=== PATIENT | female | born 1995 | race Caucasian/White ===

== ENCOUNTER 2017-09-02 09:28 | Emergency (ER) | payer OTHER ==
[2017-09-02 09:41] VITALS: BP 110/63; PULSE 82; TEMP 98.2; BMI 32.0
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
--- NOTE | 2017-09-02 11:01 | PDOC ---
*Physical Exam - Vital Signs Last Vital Signs Temp Pulse Resp BP Pulse Ox 98.2 F 82 18 110/63 100 09/02/17 09:35 09/02/17 09:35 09/02/17 09:35 09/02/17 09:35 09/02/17 09:35 ED Treatment Course - LABORATORY CBC & Chemistry Diagram: 09/02/17 11:51 09/02/17 11:51 Medical Decision Making - Medical Decision Making 09/02/17 11:01 Pt seen by the Advanced Practice Provider under my direct supervision Ancillary studies reviewed I agree with plan as outlined by the Advanced Practice Provider CHARLEE Gamboa *DC/Admit/Observation/Transfer Diagnosis at time of Disposition: UTI (urinary tract infection) during - Discharge Dispostion Disposition: HOME Condition at time of disposition: Stable - Prescriptions Prescriptions: Cephalexin Monohydrate [Keflex -] 500 mg PO BID #20 capsule - Referrals Referrals: Ling Rizzo [Primary Care Provider] - - Patient Instructions Printed Discharge Instructions: DI for Urinary Tract Infection (UTI) Additional Instructions: Take Keflex 500 mg twice a day for the next 10 days. Follow-up with your stained glass joiner that you previously scheduled appointment time. Take Tylenol for fevers or pain. Follow manufacturers instructions for appropriate dosage. Avoid taking medicines that contain ibuprofen, Naprosyn, or aspirin. Continue taking her vitamins. Keep well-hydrated. Drinking cranberry juice may help relieve symptoms of urinary tract infection. Eat a diet high in green leafy vegetables to help brain growth. Return to emergency department for worsening abdominal pain, vaginal bleeding, vaginal discharge, or any other concerns. Thank you very much for choosing us to provide your emergent healthcare needs. - Post Discharge Activity
[2017-09-02 12:06] LABS: URINE APPEARANCE SLCLOUDY; URINE BILIRUBIN NEGATIVE (NEGATIVE); URINE BLOOD 1+ (NEGATIVE); URINE COLOR LTYELLOW; URINE GLUCOSE (UA) NEGATIVE (NEGATIVE); URINE KETONE NEGATIVE (NEGATIVE); URINE LEUK ESTERASE NEGATIVE (NEGATIVE); URINE NITRITE POSITIVE (NEGATIVE); URINE PROTEIN NEGATIVE (NEGATIVE); URINE UROBILINOGEN NEGATIVE mg/dL (0.2-1.0)
[2017-09-02 12:16] LABS: BASO % 0.4 % (0-2.0); EOS % 0.2 % (0-4.5); MCH 29.7 pg (25.7-33.7); MCHC 33.8 g/dl (32.0-36.0); MEAN CELL VOLUME 87.9 fl (80-96); MEAN PLT VOLUME 7.6 fl (7.5-11.1); NEUT % 72.7 % (42.8-82.8); PLATELET COUNT 288 K/MM3 (134-434); RDW 14.1 % (11.6-15.6); WHITE BLOOD COUNT 11.7 K/mm3 (4.0-10.0)
[2017-09-02 12:39] LABS: ANION GAP 9 (8-16); CO2 24 mmol/L (21-32); CREATININE 0.6 mg/dL (0.55-1.02); GLUCOSE,RANDOM 89 mg/dL (74-106)
[2017-09-02 18:26] LABS: URINE LEUK ESTERASE Negative (NEGATIVE)
[2017-09-02 22:01] LABS: LYMPH # 2.4 (8-40); MONO # 0.7 # (3.8-10.2); NEUT # 8.5 # (42.8-82.8)
--- NOTE | 2017-09-04 07:40 | PDOC ---
Patient Follow-up (Call Back) - Post ED Follow - Up Condition at time of discharge: Stable Disposition at time of original discharge: HOME Reason for Call Back: Abnwl. Microbiology (Preliminary with lactose fermenting - bacilli. Pt placed on Keflex in ED. Adequate coverage. Will await final report.)
== END 2017-09-02 13:35 | disposition home or self-care (01) ==
LOC: JER 09:28
DX: O23.41 Unspecified infection of urinary tract in pregnancy, first trimester (principal); Z3A.08 8 weeks gestation of pregnancy; B96.20 Unspecified Escherichia coli [E. coli] as the cause of diseases classified elsewhere
CPT/HCPCS: 36415; 76801-TC; 80048; 81003; 81015; 84702; 85025; 86850; 86900; 86901; 87086; 87186; 99283-25

== ENCOUNTER 2017-09-10 05:03 | Emergency (ER) | payer OTHER ==
[2017-09-10 05:19] VITALS: BMI 31.8
--- NOTE | 2017-09-10 05:27 | PDOC ---
History of Present Illness - General History Source: Patient Exam Limitations: No Limitations - History of Present Illness Initial Comments: 09/10/17 06:15 The patient is a 22 year old, , female with no significant PMH who presents to the emergency department with abdominal pain. The patient describes the abdominal pain as sharp and localized in the suprapubic area. The patient notes the abdominal pain woke her up prompting her visit to the ER. The patient also complains of associated nausea secondary to her abdominal pain. The patient states her LMP on July 03. The patient was seen at our facility on 09/02 and discharged home on keflex for a UTI . The patient denies any vaginal bleeding, vaginal discharge, dysuria, hematuria, flank pain, rectal bleeding, difficulty voiding or moving bowels. The patient reports she is two months . The patient does not take any medications except for vitamins. Patient has her next appointment with her OB on September 20. Allergies: NKA Past surgical history: None reported. Social history: No reported alcohol, drug, or cigarette use. PCP: Dr. Rizzo <Aleja Verdin - Last Filed: 09/10/17 06:15> <Tata Meneses - Last Filed: 09/10/17 20:41> - General Chief Complaint: Pain, Acute Stated Complaint: ABDOMINAL PAIN (2 MONTHS PREG) Time Seen by Provider: 09/10/17 05:27 Past History <Aleja Verdin - Last Filed: 09/10/17 06:15> - Past Medical History COPD: No - Suicide/Smoking/Psychosocial Hx Smoking History: Never smoked Have you smoked in the past 12 months: No Number of Cigarettes Smoked Daily: 3 If you are a former smoker, when did you quit?: 08/30/17 Information on smoking cessation initiated: No Hx Alcohol Use: No Drug/Substance Use Hx: No Substance Use Type: Marijuana <Tata Meneses - Last Filed: 09/10/17 20:41> - Past Medical History Allergies/Adverse Reactions: Allergies Allergy/AdvReac Type Severity Reaction Status Date / Time No Known Allergies Allergy Verified 09/02/17 09:42 Home Medications: Ambulatory Orders Multivit-Min36/Iron/Folic Acid [Geritol Complete Tablet] 1 mg PO DAILY 09/10/17 Review of Systems - Review of Systems Able to Perform ROS?: Yes Comments:: 09/10/17 06:50 GENERAL/CONSTITUTIONAL: No fever or chills. No weakness. HEAD, EYES, EARS, NOSE AND THROAT: No change in vision. No ear pain or discharge. No sore throat. CARDIOVASCULAR: No chest pain or shortness of breath. RESPIRATORY: No cough, wheezing, or hemoptysis. GASTROINTESTINAL: (+) abdominal pain. (+) nausea. No vomiting, diarrhea or constipation. GENITOURINARY: No dysuria, frequency, or change in urination. MUSCULOSKELETAL: No joint or muscle swelling or pain. No neck or back pain. SKIN: No rash NEUROLOGIC: No headache, vertigo, loss of consciousness, or change in strength/ sensation. ENDOCRINE: No increased thirst. No abnormal weight change. HEMATOLOGIC/LYMPHATIC: No anemia, easy bleeding, or history of blood clots. ALLERGIC/IMMUNOLOGIC: No hives or skin allergy. <Aleja eVrdin - Last Filed: 09/10/17 06:15> *Physical Exam - Vital Signs Last Vital Signs Temp Pulse Resp BP Pulse Ox 97.6 F 83 20 92/64 99 09/10/17 05:18 09/10/17 05:18 09/10/17 05:18 09/10/17 05:18 09/10/17 05:18 - Physical Exam Comments: 09/10/17 06:52 GENERAL: Awake, alert, and fully oriented, in no acute distress HEAD: No signs of trauma EYES: PERRLA, EOMI, sclera anicteric, conjunctiva clear ENT: Auricles normal inspection, hearing grossly normal, nares patent, oropharynx clear without exudates. Moist mucosa NECK: Normal ROM, supple, no lymphadenopathy, JVD, or masses LUNGS: Breath sounds equal, clear to auscultation bilaterally. No wheezes, and no crackles HEART: Regular rate and rhythm, normal S1 and S2, no murmurs, rubs or gallops ABDOMEN: (+) Suprapubic tenderness. Soft, normoactive bowel sounds. No guarding , no rebound. No masses EXTREMITIES: Normal range of motion, no edema. No clubbing or cyanosis. No cords, erythema, or tenderness NEUROLOGICAL: Cranial nerves II through XII grossly intact. Normal speech, normal gait SKIN: Warm, Dry, normal turgor, no rashes or lesions noted. <Aleja Verdin - Last Filed: 09/10/17 06:15> - Vital Signs Last Vital Signs Temp Pulse Resp BP Pulse Ox 97.6 F 83 20 92/64 99 09/10/17 05:18 09/10/17 05:18 09/10/17 05:18 09/10/17 05:18 09/10/17 05:18 <Tata Meneses - Last Filed: 09/10/17 20:41> ED Treatment Course - LABORATORY CBC & Chemistry Diagram: 09/10/17 06:06 09/10/17 06:06 <Tata Meneses - Last Filed: 09/10/17 20:41> Medical Decision Making - Medical Decision Making 09/10/17 07:03 PT IS 2 MONTHS AND SHE IS HAVING CRAMPS IN LOWER ABD. SHE WAS TREATED FOR A UTI LAST TIME SHE WAS HERE A WEEK AGO.(SEP 02, AND SHE WAS GIVEN KEFLEX WHICH HER UTI WAS RESISTANT TO) SHE RETURNED ON SEP 04 AND SWITCHED TO MACROBID. SHE TOOK 5 DAYS OF MACROBID. NOW WITH CRAMPS. LABS AND URINE PENDING. PT WILL HAVE SONO TO VIEW THE FETUS. SHE HAS NO VAG BLEEDING. SHE IS BLOOD TYPE NEGATIVE AND IF SHE BLEEDS, SHE WILL REQUIRE RHOGAM PT WILL BE SIGNED OUT TO THE DAY TEAM 09/10/17 07:08 <Tata Meneses - Last Filed: 09/10/17 20:41> *DC/Admit/Observation/Transfer - Attestations Scribe Attestion: 09/10/17 06:54 Documentation prepared by Aleja Verdin, acting as medical terminologist for Tata Meneses MD. <Aleja Verdin - Last Filed: 09/10/17 06:15> <Tata Meneses - Last Filed: 09/10/17 20:41> Diagnosis at time of Disposition: Subchorionic hematoma in first trimester - Discharge Dispostion Disposition: HOME Condition at time of disposition: Good - Referrals Referrals: Ling Rizzo [Primary Care Provider] - - Patient Instructions Printed Discharge Instructions: DI for Threatened Additional Instructions: regresa al ED si estas sangrando vaginal, si tenes dolor yajaira, otras simptomas peores o differentes. Debes hacer hai elaine con tu OB en la proxima semana. - Post Discharge Activity
[2017-09-10 06:19] LABS: BASO % 0.8 % (0-2.0); EOS % 0.4 % (0-4.5); HEMATOCRIT 36.7 % (32.4-45.2); HEMOGLOBIN 12.3 GM/dL (10.7-15.3); LYMPH % 23.3 % (8-40); MCH 29.6 pg (25.7-33.7); MCHC 33.6 g/dl (32.0-36.0); MEAN CELL VOLUME 88.2 fl (80-96); MEAN PLT VOLUME 7.8 fl (7.5-11.1); MONO % 5.9 % (3.8-10.2); NEUT % 69.6 % (42.8-82.8); PLATELET COUNT 251 K/MM3 (134-434); RBC 4.16 M/mm3 (3.60-5.2); RDW 13.9 % (11.6-15.6); WHITE BLOOD COUNT 10.3 K/mm3 (4.0-10.0)
[2017-09-10 06:46] LABS: URINE APPEARANCE SLCLOUDY; URINE BILIRUBIN NEGATIVE (NEGATIVE); URINE BLOOD NEGATIVE (NEGATIVE); URINE COLOR YELLOW; URINE GLUCOSE (UA) NEGATIVE (NEGATIVE); URINE KETONE NEGATIVE (NEGATIVE); URINE LEUK ESTERASE NEGATIVE (NEGATIVE); URINE NITRITE NEGATIVE (NEGATIVE); URINE PROTEIN NEGATIVE (NEGATIVE); URINE UROBILINOGEN NEGATIVE mg/dL (0.2-1.0)
[2017-09-10 06:48] LABS: ALBUMIN 3.3 g/dl (3.4-5.0); ANION GAP 8 (8-16); BILIRUBIN,TOTAL 0.2 mg/dL (0.2-1.0); BLOOD UREA NITROGEN 8 mg/dL (7-18); CALCIUM 8.8 mg/dL (8.5-10.1); CHLORIDE 104 mmol/L (98-107); CO2 25 mmol/L (21-32); CREATININE 0.5 mg/dL (0.55-1.02); GLUCOSE,RANDOM 89 mg/dL (74-106); POTASSIUM 4.1 mmol/L (3.5-5.1); SGOT/AST 23 U/L (15-37); SGPT/ALT 38 U/L (12-78); SODIUM 137 mmol/L (136-145); TOT PROT 6.7 g/dl (6.4-8.2)
[2017-09-10 07:03] LABS: ALK PHOS 48 U/L (45-117)
[2017-09-10] MEDS ORDERED: RHO(D) IMMUNE GLOBULIN 1,500 UNIT DISP.SYRIN IM ONE (10:12)
--- NOTE | 2017-09-10 10:36 | PDOC ---
*Physical Exam - Vital Signs Last Vital Signs Temp Pulse Resp BP Pulse Ox 97.6 F 83 20 92/64 99 09/10/17 05:18 09/10/17 05:18 09/10/17 05:18 09/10/17 05:18 09/10/17 05:18 ED Treatment Course - LABORATORY CBC & Chemistry Diagram: 09/10/17 06:06 09/10/17 06:06 - ADDITIONAL ORDERS Additional order review: Laboratory Results 09/10/17 09/10/17 09/10/17 09:09 06:06 06:00 Sodium 137 Potassium 4.1 Chloride 104 Carbon Dioxide 25 Anion Gap 8 BUN 8 D Creatinine 0.5 L Creat Clearance w eGFR > 60 Random Glucose 89 Calcium 8.8 Total Bilirubin 0.2 AST 23 ALT 38 Alkaline Phosphatase 48 Total Protein 6.7 Albumin 3.3 L Beta HCG, Quant 63549.0 Urine Color Yellow Urine Appearance Slcloudy Urine pH 6.0 Ur Specific Jelm 1.024 Urine Protein Negative Urine Glucose (UA) Negative Urine Ketones Negative Urine Blood Negative Urine Nitrite Negative Urine Bilirubin Negative Urine Urobilinogen Negative Blood Type AB NEGATIVE Antibody Screen Negative 09/10/17 06:06 RBC 4.16 MCV 88.2 MCHC 33.6 RDW 13.9 MPV 7.8 Neutrophils % 69.6 Lymphocytes % 23.3 Monocytes % 5.9 Eosinophils % 0.4 D Basophils % 0.8 - Medications Given in the ED: ED Medications Discontinued Medications Generic Name Dose Route Start Last Admin Trade Name Freq PRN Reason Stop Dose Admin Rho Immune Globulin 1,500 unit 09/10/17 10:12 09/10/17 10:23 Rhogam Plus IM 09/10/17 10:13 1,500 unit ONCE ONE Administration Medical Decision Making - Medical Decision Making 09/10/17 10:28 pt signed out to me by Dr. Meneses as pending transvaginal US for abdominal pain in . on official US, live IUP with + subchrorionic hemmorrhage. Will treat with rhogham and discharge. *DC/Admit/Observation/Transfer Diagnosis at time of Disposition: Subchorionic hematoma in first trimester Qualifiers: Fetus number: single or unspecified fetus Qualified Code(s): O41.8X10 - Other specified disorders of amniotic fluid and membranes, first trimester, not applicable or unspecified; O46.8X1 - Other antepartum hemorrhage, first trimester; O46.8X1 - Other antepartum hemorrhage, first trimester - Discharge Dispostion Disposition: HOME Condition at time of disposition: Good Admit: No - Referrals Referrals: Ling Rizzo [Primary Care Provider] - - Patient Instructions Printed Discharge Instructions: DI for Threatened Additional Instructions: regresa al ED si estas sangrando vaginal, si tenes dolor yajaira, otras simptomas peores o differentes. Debes hacer hai elaine con tu OB en la proxima semana. - Post Discharge Activity
[2017-09-10 11:06] VITALS: BP 106/68; PULSE 72; TEMP 98.2
== END 2017-09-10 11:04 | disposition home or self-care (01) ==
LOC: JER 05:03
PROC: 3E0234Z Introduction of Serum, Toxoid and Vaccine into Muscle, Percutaneous Approach (ICD-10-PCS; principal; 2017-09-10)
DX: O46.8X1 Other antepartum hemorrhage, first trimester (principal); O41.8X11 Other specified disorders of amniotic fluid and membranes, first trimester, fetus 1; Z3A.10 10 weeks gestation of pregnancy
CPT/HCPCS: 36415; 76801-TC; 80053; 81003; 84702; 85025; 86850; 86900; 86901; 86999; 87086; 99283-25; J1561

== ENCOUNTER 2017-09-22 11:14 | Emergency (ER) | payer OTHER ==
[2017-09-22 11:18] VITALS: BP 114/69; PULSE 80; TEMP 98.4; BMI 33.1
[2017-09-22 12:16] LABS: BASO % 0.4 % (0-2.0); EOS % 0.4 % (0-4.5); HEMATOCRIT 37.4 % (32.4-45.2); HEMOGLOBIN 12.7 GM/dL (10.7-15.3); LYMPH % 23.3 % (8-40); MCH 29.9 pg (25.7-33.7); MCHC 33.8 g/dl (32.0-36.0); MEAN CELL VOLUME 88.4 fl (80-96); MEAN PLT VOLUME 7.2 fl (7.5-11.1); MONO % 5.5 % (3.8-10.2); NEUT % 70.4 % (42.8-82.8); PLATELET COUNT 248 K/MM3 (134-434); RBC 4.24 M/mm3 (3.60-5.2); RDW 14.5 % (11.6-15.6); WHITE BLOOD COUNT 9.2 K/mm3 (4.0-10.0)
[2017-09-22 12:18] LABS: URINE APPEARANCE CLOUDY; URINE BILIRUBIN NEGATIVE (NEGATIVE); URINE BLOOD NEGATIVE (NEGATIVE); URINE COLOR YELLOW; URINE GLUCOSE (UA) NEGATIVE (NEGATIVE); URINE KETONE NEGATIVE (NEGATIVE); URINE LEUK ESTERASE NEGATIVE (NEGATIVE); URINE NITRITE NEGATIVE (NEGATIVE); URINE PROTEIN NEGATIVE (NEGATIVE); URINE UROBILINOGEN NEGATIVE mg/dL (0.2-1.0)
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
[2017-09-22 12:41] LABS: ALBUMIN 3.4 g/dl (3.4-5.0); ANION GAP 6 (8-16); BILIRUBIN,TOTAL 0.3 mg/dL (0.2-1.0); BLOOD UREA NITROGEN 5 mg/dL (7-18); CALCIUM 8.7 mg/dL (8.5-10.1); CHLORIDE 105 mmol/L (98-107); CO2 25 mmol/L (21-32); CREATININE 0.5 mg/dL (0.55-1.02); GLUCOSE,RANDOM 87 mg/dL (74-106); POTASSIUM 3.7 mmol/L (3.5-5.1); SGOT/AST 12 U/L (15-37); SGPT/ALT 18 U/L (12-78); SODIUM 136 mmol/L (136-145); TOT PROT 6.8 g/dl (6.4-8.2)
[2017-09-22 12:42] LABS: ALK PHOS 49 U/L (45-117)
[2017-09-22 12:48] LABS: INR 1.11 (0.82-1.09); PROTHROMBIN TIME (PATIENT) 12.5 SEC (9.98-11.88)
--- NOTE | 2017-09-22 14:14 | PDOC ---
*Physical Exam - Vital Signs Last Vital Signs Temp Pulse Resp BP Pulse Ox 98.4 F 80 19 114/69 100 09/22/17 11:16 09/22/17 11:16 09/22/17 11:16 09/22/17 11:16 09/22/17 11:16 ED Treatment Course - LABORATORY CBC & Chemistry Diagram: 09/22/17 12:03 09/22/17 11:41 - ADDITIONAL ORDERS Additional order review: Laboratory Results 09/22/17 09/22/17 09/22/17 11:41 11:41 11:41 PT with INR INR Sodium 136 Potassium 3.7 Chloride 105 Carbon Dioxide 25 Anion Gap 6 L BUN 5 L D Creatinine 0.5 L Creat Clearance w eGFR > 60 Random Glucose 87 Calcium 8.7 Total Bilirubin 0.3 D AST 12 L D ALT 18 D Alkaline Phosphatase 49 Total Protein 6.8 Albumin 3.4 Urine Color Yellow Urine Appearance Cloudy Urine pH 7.0 Ur Specific [place] 1.016 Urine Protein Negative Urine Glucose (UA) Negative Urine Ketones Negative Urine Blood Negative Urine Nitrite Negative Urine Bilirubin Negative Urine Urobilinogen Negative Ur Leukocyte Esterase Negative Blood Type AB NEGATIVE 09/22/17 11:41 PT with INR 12.50 H INR 1.11 Sodium Potassium Chloride Carbon Dioxide Anion Gap BUN Creatinine Creat Clearance w eGFR Random Glucose Calcium Total Bilirubin AST ALT Alkaline Phosphatase Total Protein Albumin Urine Color Urine Appearance Urine pH Ur Specific [place] Urine Protein Urine Glucose (UA) Urine Ketones Urine Blood Urine Nitrite Urine Bilirubin Urine Urobilinogen Ur Leukocyte Esterase Blood Type 09/22/17 12:03 RBC 4.24 MCV 88.4 MCHC 33.8 RDW 14.5 MPV 7.2 L Neutrophils % 70.4 Lymphocytes % 23.3 Monocytes % 5.5 Eosinophils % 0.4 Basophils % 0.4 Medical Decision Making - Medical Decision Making 09/22/17 14:13 Patient seen and evaluated with the nurse practitioner. I agree with the overall evaluation, assessment, and management with the following summary of visit: 22-year-old female at about 11 weeks gestation with recently diagnosed subchorionic bleed presents with persistent cramping but no further bleeding. Agree with workup including hCG, type and screen, ultrasound Urinalysis Dispo accordingly
== END 2017-09-22 15:58 | disposition home or self-care (01) ==
LOC: JER 11:14
DX: O26.891 Other specified pregnancy related conditions, first trimester (principal); R10.30 Lower abdominal pain, unspecified; Z3A.12 12 weeks gestation of pregnancy
CPT/HCPCS: 36415; 76801-TC; 80053; 81003; 84702; 85025; 85610; 86850; 86870; 86900; 86901; 86902; 99282-25